=== PATIENT | male | born 1960 ===

== ENCOUNTER 2018-05-30 12:12 | Emergency (ER) | payer OTHER ==
[~2018-05-30] VITALS: Ht 177.8 cm; Wt 77.1 kg
[2018-05-30 12:20] VITALS: BP 133/86
--- NOTE | 2018-05-30 12:25 | ED SKIN/ALLERGY COMPLAINT ---
History of Present Illness General Chief Complaint: Lower Extremity Problems Stated Complaint: LEFT LEG PAIN Source: patient, family Exam Limitations: language barrier Vital Signs & Intake/Output Vital Signs & Intake/Output Vital Signs Date Time Temp Pulse Resp B/P B/P Pulse O2 O2 Flow FiO2 Mean Ox Delivery Rate 05/30 1220 97.0 69 15 133/86 99 Room Air Room Air ED Intake and Output 05/31 0000 05/30 1200 Intake Total 0 Output Total Balance 0 Intake, Oral 0 Patient 170 lb Weight Weight Estimated Measurement Method Allergies Coded Allergies: No Known Allergies (05/30/18) Reconcile Medications Hydroxyzine Hydrochloride (Atarax) 50 MG TAB 1 TAB PO TID PRN ITCHING Methylprednisolone. (Medrol) 4 MG TAB.DS.PK 1 DP PO AD RASH 6 on day 1 then reduce by one tablet daily until gone Triamcinolone Acetonide 0.1 % CREAM..G. 1 LORENZO TOP BID PRN RASH Triage Nurses Notes Reviewed? yes Onset: Gradual Duration: week(s): (1 year), constant, continues in ED, getting worse Timing: recent history Severity: mild, moderate Location: extremities Possible Factors: no cause identified HPI: 58-year-old male with no medical history presents for evaluation of a rash. Patient does not speak Turkmen the history is obtained from his friend. The rash initially started over a year ago and is present on the bilateral lower extremities mostly near the ankles and anterior lower legs. The rash is very itchy. It is also present to a lesser extent on his anterior lower abdomen. It has gradually gotten worse. Patient has tried putting calamine lotion without any improvement. He's never had this previously. He denies any pain swelling, Discharge fever spreading redness. No recent surgery recent trauma. He does not smoke. No chest pain or shortness of breath. He has never been evaluated for this rash. (Riley Espinal) Past History Medical History Any Pertinent Medical History? see below for history Surgical History Surgical History: non-contributory Family History Hx Contributory? No (Riley Espinal) Review of Systems Review of Systems Constitutional: Reports: no symptoms. EENTM: Reports: no symptoms. Respiratory: Reports: no symptoms. Cardiovascular: Reports: no symptoms. GI: Reports: no symptoms. Genitourinary: Reports: no symptoms. Musculoskeletal: Reports: no symptoms. Skin: Reports: rash. Neurological/Psychological: Reports: no symptoms. Hematologic/Endocrine: Reports: no symptoms. Immunologic/Allergic: Reports: no symptoms. All Other Systems: Reviewed and Negative (Riley Espinal) Physical Exam Physical Exam General Appearance: well developed/nourished, no apparent distress, alert, awake Head: atraumatic, normal appearance Eyes: Bilateral: normal appearance, PERRL, EOMI. Ears, Nose, Throat: hearing grossly normal Neck: normal inspection, supple, full range of motion Respiratory: normal breath sounds, chest non-tender, lungs clear Cardiovascular: regular rate/rhythm Peripheral Pulses: 4+ tibialis posterior (R), 4+ tibialis posterior (L), 4+ dorsalis pedis (R), 4+ dorsalis pedis (L) Gastrointestinal: soft, non-tender Back: normal inspection, normal range of motion Extremities: normal range of motion, no edema Neurologic/Psych: no motor/sensory deficits, awake, alert, oriented x 3, normal gait, normal mood/affect Skin: intact, normal color, warm/dry, rash Skin Problem Location: torso, lower extremities Skin Problem Character: on the bilateral anterior ankles/lower legs and lower abdomen there is dried cracked scaling lichenified skin with overlying excoriations. There is no erythema or purulent discharge no swelling no lymphatic streaking no tenderness to palpation no focal fluctuant areas no discharge (Riley Espinal) Progress Differential Diagnosis: abscess/cellulitis, allergic reaction, contact dermatitis, drug reaction, erythema multiforme, piyriasis rosea, urticaria, eczema, dermatitis Plan of Care: Patient is here with an itchy rash that is present greater than a year. On exam the rash does not appear to be infected. It has the appearance of something that will respond to a topical steroid. Patient was given a prescription for Medrol Dosepak, 0.1% topical Kenalog and hydroxyzine. Keep the skin clean and moisturized. Make a follow-up with a primary care doctor and paint roller covers supervisor. Advised patient may need a skin biopsy. Discussed return precautions in detail including signs of infection patient agrees the plan (Riley Espinal) Departure Departure Disposition: HOME OR SELF CARE Condition: Stable Clinical Impression Primary Impression: Rash and nonspecific skin eruption Additional Instructions: Take Medrol Dosepak as directed for the full course. Hydroxyzine as needed for itching. Apply topical steroid cream twice a day. You need to make a follow-up with a primary care doctor and see a paint roller covers supervisor. [place] for signs of infection like redness swelling discharge or pain. Monitor your symptoms return with any concerns. Please go over all results of today's visit with your primary care doctor. Contact your primary care doctor to let them know you were here in the emergency room. There may be nonspecific findings which may not be related to your visit today here in the emergency room but may require further evaluation and chronic monitoring by your primary care doctor. If you had a laceration today the chance of foreign body always remains. You should follow-up with your primary care doctor for recheck in 3-5 days for a wound check. If you had an x-ray done there is a chance that a fracture could have been missed on initial read and you should follow-up with your primary care doctor for repeat x-rays if symptoms persist. If your blood pressure was elevated here in the emergency room please have rechecked by her primary care doctor within the next 48 hours by your primary care doctor. If you were prescribed a narcotic here in the emergency room or any type of controlled substances you're not allowed to drive while taking this medication or operate any type of heavy machinery. Narcotics can make you feel lightheaded dizziness nausea and can cause constipation. You may need to picker packer a stool softener. Thank you for choosing [facility] emergency room. Please return to the emergency room immediately if you have any other concerns worsening of symptoms. Departure Forms: Customer Survey General Discharge Information Prescriptions: Current Visit Scripts Methylprednisolone. (Medrol) 1 DP PO AD #1 DP 6 on day 1 then reduce by one tablet daily until gone Hydroxyzine Hydrochloride (Atarax) 1 TAB PO TID PRN ITCHING #30 TAB Triamcinolone Acetonide 1 LORENZO TOP BID PRN RASH #1 TUBE (Riley Espinal) PA/MOTOR TESTER Co-Sign Statement Statement: ED Attending supervision documentation- [] I saw and evaluated the patient. I have also reviewed all the pertinent lab results and diagnostic results. I agree with the findings and the plan of care as documented in the PA's/MOTOR TESTER's documentation. [x] I have reviewed the ED Record and agree with the PA's/MOTOR TESTER's documentation. [] Additions or exceptions (if any) to the PAs/MOTOR TESTER's note and plan are summarized below: [] (Hemanth IRVIN,[facility])
[2018-05-30] MEDS ORDERED: TRIAMCINOLONE A15 G1 TOP (12:34)
[2018-05-30] MEDS ORDERED: MEDROL4 M2 PO (12:34)
[2018-05-30] MEDS ORDERED: HYDROXYZINE HCL50 M1 PO (12:34)
== END 2018-05-30 12:38 ==
LOC: ERH 12:12
DX: R21 Rash and other nonspecific skin eruption (principal)